=== PATIENT | female | born 1975 | race Two or more races ===

== ENCOUNTER 2019-10-18 13:28 | Outpatient (CLI) | payer OTHER ==
[~2019-10-18 13:28] MED LIST: GLUCOPHAGE XR500 MG; TORADOL10 MG; ULTRACET
== END 2019-10-18 13:47 | disposition home or self-care (01) ==
LOC: MAMO-SONO 13:28
PROVIDERS: ATTEND Internal Medicine
DX: N64.59 Other signs and symptoms in breast (principal); D24.2 Benign neoplasm of left breast

== ENCOUNTER 2022-06-24 11:08 | Outpatient (CLI) | payer OTHER | END 2022-06-24 11:18 | disposition home or self-care (01) | LOC: MAMO-SONO 11:08 | PROVIDERS: ATTEND Internal Medicine | DX: N63.20 Unspecified lump in the left breast, unspecified quadrant (principal) ==

== ENCOUNTER 2022-08-18 08:53 | Outpatient (CLI) | payer OTHER | END 2022-08-18 09:04 | disposition home or self-care (01) | LOC: RAD 08:53 | PROVIDERS: ATTEND Orthopaedic Surgery Hand Surgery | DX: M79.641 Pain in right hand (principal) ==